=== PATIENT | male | born 1940 | race Two or more races ===

== ENCOUNTER 2018-06-03 18:19 | Emergency (ER) | payer SELFPAY ==
[2018-06-03] MEDS ORDERED: HYDROCODONE/APAP 5/325 TAB PO ONE (19:15)
[2018-06-03] MEDS ORDERED: KETOROLAC 30 MG/1 ML SDV IM ONE (19:16)
[2018-06-03] MEDS ORDERED: LIDOCAINE 4%/MENTHOL 1% PATCH TD ONE (19:17)
--- NOTE | 2018-06-03 19:29 | EDPHY ---
H & P Time Seen by Provider: 06/03/18 18:58 HPI/ROS: CHIEF COMPLAINT: Low Back Pain HISTORY OF PRESENT ILLNESS: Pt here with right sided low back pain that started yesterday while lying on a cough watching TV. He has a hx of both sciatica and renal colic. He has no hx of AAA. He denies fever, dysuria, blood in urine, leg numbness or weakness, saddle paresthesias, incontinence. REVIEW OF SYSTEMS: Constitutional: No fever, no chills. Eyes: No discharge. ENT: No sore throat. Cardiovascular: No chest pain, no palpitations. Respiratory: No cough, no shortness of breath. Gastrointestinal: No abdominal pain, no vomiting. Genitourinary: No hematuria. Musculoskeletal: + back pain. Skin: No rashes. Neurological: No headache. Smoking Status: Never smoked Physical Exam: General Appearance: Alert and no distress. Eyes: Pupils equal and round no injection. Respiratory: Chest is nontender, lungs are clear to auscultation. Cardiac: regular rate and rhythm. Gastrointestinal: Abdomen is soft and nontender, no masses, bowel sounds normal. Musculoskeletal: Neck is supple and nontender. TTP to right lower lumbar paraspinal muscles. Extremities have full range of motion and are nontender. Equal strength and sensation in lower extremities. Ambulatory without limp. Skin: No rashes or lesions. Constitutional: Initial Vital Signs Temperature (C) 36.9 C 06/03/18 18:23 Heart Rate 59 L 06/03/18 18:23 Respiratory Rate 16 06/03/18 18:23 Blood Pressure 194/96 H 06/03/18 18:23 O2 Sat (%) 93 06/03/18 18:23 O2 Delivery Mode Room Air Allergies/Adverse Reactions: No Known Allergies Allergy (Unverified 06/03/18 18:23) Home Medications: Medication Instructions Recorded Aspirin 06/03/18 Chol Med 06/03/18 Dorflex 06/03/18 Htn Med 06/03/18 Hydrocodone/Acetaminophen [[place] 1 each PO Q6 PRN #8 tablet 06/03/18 5/325 (*)] Lidocaine [Lidoderm] 1 each TP DAILY 15 Days #15 06/03/18 adh..patch Medical Decision Making ED Course/Re-evaluation: Pt here with low back pain. Given his hx of renal colic CT was offered along with labs and UA but pt declined all work up other than treating his pain. He was given lidocaine path, toradol and norco and feel improved. I considered cauda equina, renal colic, AAA, compression fracture. - Data Points Medications Given: Discontinued Medications Hydrocodone Bitart/Acetaminophen ([place] 5/325) 1 tab PO EDNOW ONE Stop: 06/03/18 19:16 Last Admin: 06/03/18 19:27 Dose: 1 tab Ketorolac Tromethamine (Toradol) 15 mg IM EDNOW ONE Stop: 06/03/18 19:17 Last Admin: 06/03/18 19:27 Dose: 15 mg Miscellaneous Medication (Icy Hot Lidocaine/Menthol 4%/1% Patch) 1 patch TD EDNOW ONE Stop: 06/03/18 19:18 Last Admin: 06/03/18 19:27 Dose: 1 patch Departure - Departure Disposition: Home, Routine, Self-Care Clinical Impression: Low back pain Condition: Good Instructions: Acute Low Back Pain (ED) Additional Instructions: This or severe pain is unclear as we have not done any imaging or checked your urinalysis. He have continued pain or worsening pain please return to the [facility]. I am prescribing her pain medication he may take as needed. Referrals: NONE *PRIMARY CARE P,. [Primary Care Provider] - As per Instructions Prescriptions: Hydrocodone/Acetaminophen [[place] 5/325 (*)] 1 each PO Q6 PRN #8 tablet PRN Reason: Pain, Moderate Lidocaine [Lidoderm] 1 each TP DAILY 15 Days #15 adh..patch
[2018-06-03 19:53] VITALS: BP 181/82
[2018-06-03] MEDS ORDERED: PATCH REMOVAL 1 EA PATCH TD SCH (21:00)
== END 2018-06-03 19:54 | disposition home or self-care (01) ==
DX: M54.5 Low back pain (principal)
CPT/HCPCS: J1885